=== PATIENT | female | born 1955 | race Hispanic/Latino ===

== ENCOUNTER → 2017-07-11 | Day surgery (SDC) | payer OTHER ==
[~2017-07-11] MED LIST: ATENOLOL50 MG PO; CALCIUM CARBON500 MG PO; CEFAZOLIN SOD 1 GM VIAL ONE; FENTANYL CITRATE/PF 100MCG/2 ML INJ ONE; FISH OIL 1,0001 EAC3 PO; FUROSEMIDE40 MG PO; LISINOPRIL-HCT1 EACH PO; MIDAZOLAM HCL 2 MG/2 ML VIAL ONE; PROPOFOL IV EMULSION 10 MG/ML 50 ML VIAL ONE; SPIRONOLACTONE25 MG PO; URSODIOL300 MG PO; VITAMIN D35000 UNIT PO
== END | disposition home or self-care (01) ==
LOC: OR 06:07
PROVIDERS: ATTEND Internal Medicine Gastroenterology
DX: K74.3 Primary biliary cirrhosis (principal); K29.50 Unspecified chronic gastritis without bleeding; I85.10 Secondary esophageal varices without bleeding; K25.9 Gastric ulcer, unspecified as acute or chronic, without hemorrhage or perforation; K76.6 Portal hypertension; K31.89 Other diseases of stomach and duodenum; I10 Essential (primary) hypertension; Z01.810 Encounter for preprocedural cardiovascular examination; Z68.35 Body mass index [BMI] 35.0-35.9, adult; Z87.01 Personal history of pneumonia (recurrent); Z87.891 Personal history of nicotine dependence
CPT/HCPCS: 43239; 43244; 93005; J0690; J2250

== ENCOUNTER → 2017-07-25 | Day surgery (SDC) | payer OTHER ==
[~2017-07-25] MED LIST changes: +LIDOCAINE HCL 2% LOCAL INJ 5 ML SDV VIAL INJ ONE
== END | disposition home or self-care (01) ==
LOC: OR 06:51
PROVIDERS: ATTEND Internal Medicine Gastroenterology
DX: K74.3 Primary biliary cirrhosis (principal); I85.10 Secondary esophageal varices without bleeding; K22.10 Ulcer of esophagus without bleeding; K76.6 Portal hypertension; K31.89 Other diseases of stomach and duodenum; I10 Essential (primary) hypertension; Z68.35 Body mass index [BMI] 35.0-35.9, adult; Z87.01 Personal history of pneumonia (recurrent)
CPT/HCPCS: 43239; 43244; J0690; J2001; J2250

== ENCOUNTER → 2018-07-17 | Day surgery (SDC) | payer OTHER ==
[2018-07-10 15:37] LABS: BASOPHILS % 0.5 % (0.0-1.0); EOSINOPHILS # (AUTO) 0.1 (0.0-0.4); EOSINOPHILS % 3.2 % (0.0-6.0); HEMATOCRIT 38.2 % (34.2-44.1); HEMOGLOBIN 13.1 g/dL (12.0-16.0); LYMPHOCYTES # (AUTO) 1.1 (1.0-3.2); LYMPHOCYTES % 29.6 % (18.0-39.1); MEAN CORPUSCULAR HEMOGLOBIN 33.5 pg (28-32); MEAN CORPUSCULAR HGB CONC 34.3 g/dL (31-35); MEAN CORPUSCULAR VOLUME 97.7 fL (81-99); MONOCYTES # (AUTO) 0.4 (0.2-0.8); MONOCYTES % 10.5 % (4.4-11.3); NEUTROPHILS # (AUTO) 2.1 (2.1-6.9); NEUTROPHILS % 55.9 % (38.7-80.0); RED BLOOD COUNT 3.91 x10e6/uL (3.6-5.1); RED CELL DISTRIBUTION WIDTH 13.3 % (11.7-14.4)
[2018-07-10 15:41] LABS: PLATELET COUNT 55 x10e3/uL (140-360)
[2018-07-10 15:45] LABS: INR 1.02; PROTHROMBIN TIME 14.3 seconds (11.9-14.5)
[2018-07-10 15:55] LABS: ALANINE AMINOTRANSFERASE 17 IU/L (0-55); ALBUMIN 3.2 g/dL (3.5-5.0); ALBUMIN/GLOBULIN RATIO 0.9 (0.8-2.0); ALKALINE PHOSPHATASE 148 IU/L (40-150); BLOOD UREA NITROGEN 12 mg/dL (7-26); BUN/CREATININE RATIO 17 (6-25); CALCIUM 8.7 mg/dL (8.4-10.2); CARBON DIOXIDE 27 mmol/L (22-29); CHLORIDE 102 mmol/L (98-107); CREATININE, SERUM 0.69 mg/dL (0.57-1.11); EST GLOMERULAR FILTRATION RATE > 60 ML/MIN (60-); GLUCOSE 107 mg/dL (74-118); SODIUM 141 mmol/L (136-145)
[~2018-07-17] MED LIST changes: -CEFAZOLIN SOD 1 GM VIAL ONE; +FAMOTIDINE20 MG PO; -FENTANYL CITRATE/PF 100MCG/2 ML INJ ONE; +PROPOFOL IV EMULSION 10 MG/ML 20 ML VIAL ONE; -PROPOFOL IV EMULSION 10 MG/ML 50 ML VIAL ONE
--- OUTSIDE RECORDS SUMMARY | 2018-07-17 06:27 | XMS REPORT | Clinical Summary ---
Author Author [facility] Address Unknown Phone Unavailable Care Team Providers Care Water Sponger Name Role Phone Maik Reyes PCP Unavailable Allergies No Known Allergies Medications End Date Status Medication Sig Dispensed Refills Start Date Active atenolol (TENORMIN) 50 MG Take 50 mg by 0 tablet mouth 2 (two) 6 times daily . Active cetirizine (ZYRTEC) 10 MG Take 10 mg by 0 tablet mouth. 5 Active omega-3 fatty Take 1,000 mg 0 acids-vitamin E (FISH by mouth. OIL) 1,000 mg Cap Active cholecalciferol, vitamin Take 5,000 0 D3, (VITAMIN D3) 5,000 Units by unit Tab mouth daily. Active pantoprazole (PROTONIX) Take 40 mg by 0 40 MG tablet mouth daily. Active calcium carbonate 1250 MG Take 2,400 mg 0 capsule by mouth daily. Active furosemide (LASIX) 20 MG Take 1 tablet 90 tablet 3 tabletIndications: Pedal (20 mg total) 8 edema by mouth daily. Active spironolactone Take 2 180 tablet 5 (ALDACTONE) 25 MG tablets (50 8 tabletIndications: Pedal mg total) by edema mouth daily. Active ursodiol (ACTIGALL) 300 TAKE 2 360 capsule 1 mg capsule CAPSULES 8 (=600MG) TWICE DAILY FOR PRIMARY BILIARY CHOLANGITIS. 01/23/2018 Discontinued lisinopril-hydrochlorothi 0 azide 6 (PRINZIDE,ZESTORETIC) 20-12.5 mg per tablet 01/23/2018 Discontinued calcium carbonate-vitamin Take by 0 D3 (CALCIUM 500 + D) 500 mouth. mg(1,250mg) -400 unit Tab 07/31/2017 Discontinued furosemide (LASIX) 20 MG Take 1 tablet 30 tablet 5 tabletIndications: Pedal (20 mg total) 7 edema by mouth daily. 07/31/2017 Discontinued spironolactone Take 1 tablet 30 tablet 5 (ALDACTONE) 25 MG (25 mg total) 7 tabletIndications: Pedal by mouth edema daily. 01/07/2018 Discontinued ursodiol (ACTIGALL) 300 Take 2 360 capsule 1 mg capsule capsules (600 7 mg total) by mouth 2 (two) times daily. 01/23/2018 Discontinued RABEprazole (ACIPHEX) 20 Take 20 mg by 0 mg EC tablet mouth daily. 01/22/2018 Discontinued furosemide (LASIX) 20 MG Take 1 tablet 30 tablet 5 tabletIndications: Pedal (20 mg total) 7 edema by mouth daily. 01/22/2018 Discontinued spironolactone Take 1 tablet 30 tablet 5 (ALDACTONE) 25 MG (25 mg total) 7 tabletIndications: Pedal by mouth edema daily. 05/08/2018 Discontinued ursodiol (ACTIGALL) 300 TAKE 2 360 capsule 1 mg capsule CAPSULES 8 (=600MG) TWICE DAILY FOR PRIMARY BILIARY CHOLANGITIS 01/23/2018 Discontinued spironolactone TAKE ONE 30 tablet 5 (ALDACTONE) 25 MG TABLET BY 8 tabletIndications: Pedal MOUTH ONCE edema DAILY 01/23/2018 Discontinued furosemide (LASIX) 20 MG TAKE ONE 30 tablet 5 tabletIndications: Pedal TABLET BY 8 edema MOUTH ONCE DAILY Active Problems Problem Noted Date Immunity status testing 08/09/2016 Last Assessment & Plan: CDC recommends that all patients with chronic liver disease, regardless of etiology, should be immunized to prevent hepatitis A and hepatitis B if they are not already immune. This should be done in addition to other age-appropriate vaccines. She is not immune to hepatitis B and needs vaccination series. We will check her Hepatitis A status next visit. Varices, esophageal 08/09/2016 Last Assessment & Plan: EGD 07/19/[address] Rosen showed grade I/II varices. Continue to follow-up with Dr. Rosen for variceal screening. Abnormal liver enzymes 06/20/2016 Last Assessment & Plan: The patient's liver test abnormalities are likely related to Primary biliary cirrhosis .Comprehensive testing for other causes of liver diseases was negative. Liver biopsy was considered to be diagnostic for Primary biliary cirrhosis. We will review the liver biopsy. Continue to take Ursodiol. 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 She is currently taking ursodiol 600mg BID. We will check labs to see her response to ursodiol. 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 She had a positive SARKIS with high titer, nuclear pattern, and high IgG. Her liver biopsy had rare clusters of plasma cells so overlap syndrome was ruled out. Synthetic function is somewhat preserved. Her cirrhosis is compensate with a MELD-NA 8 (06/20/16). Portal hypertension 06/20/2016 Last Assessment & Plan: Manifested by thrombocytopenia and varices. Secondary esophageal varices without bleeding 06/20/2016 Last Assessment & Plan: Patient with PBC , high rsik for development of portal hypertenion. We will recommend upper endoscopy for screening varices. Patient will contact Dr Lopez's office. Based on result, further recommendations will be made Screening for cancer 06/20/2016 Last Assessment & Plan: Cirrhosis, regardless of etiology, is a risk factor for hepatocellular carcinoma (HCC), with an annual incidence of 1.5-7%. We recommend surveillance for HCC with abdominal imaging and alphafetoprotein every 6 months. US 01/2016 was negative for any suspicious lesions. She is due for a repeat US now, order given. AFP 06/20/16 was 3.0. Screening for endocrine/metabolic/immunity disorders 06/20/2016 Last Assessment & Plan: Serological tests will be completed to determine the presence of immunity to hepatitis A and B. If found susceptible she will be referred to her primary care provider to consider the administration of the appropriate vaccines. Osteoporosis 06/20/2016 Last Assessment & Plan: Patient with PBC have high risk of osteoporosis. She had a Dexa Scan last week but does not have the results. Continue Calcium and Vitamin D and discuss the Dexa scan results with PCP. Encounters Care Team Description Date Type Specialty Harmeet Morales MD Cirrhosis, biliary (HCC) 07/06/2018 Hospital Radiology Encounter Harmeet Morales MD Cirrhosis, biliary (HCC) 07/06/2018 Orders Only Lab Harmeet Morales MD 07/03/2018 Outside Orders Radiology Tahmina Head RN 05/08/2018 Orders Only Hepatology Lavonne Quintana MA 05/07/2018 Abstract Transplant Tahmina Head RN 05/04/2018 Abstract Hepatology Tahmina Head RN 05/01/2018 Orders Only Hepatology Cecy Worthington 01/24/2018 Abstract Hepatology Harmeet Morales MD Cirrhosis, biliary (HCC) (Primary Dx); Primary biliary cholangitis (HCC); Pedal edema 01/23/2018 Office Visit Hepatology Sai Leach NP 01/23/2018 Documentation Hepatology Uche Jesus MD Pedal edema 01/22/2018 Refill Hepatology Harmeet Morales MD Cirrhosis, biliary (HCC) 01/12/2018 Hospital Radiology Encounter Harmeet Morales MD 01/12/2018 Outside Orders Harmeet Morales MD 01/07/2018 Refill Hepatology Tahmina Head RN Cirrhosis, biliary (HCC) (Primary Dx) 11/27/2017 Orders Only Hepatology Cecy Worthington 09/08/2017 Abstract Hepatology Eduarda Santana, GERIATRICS PHYSICIAN Primary biliary cholangitis (HCC) (Primary Dx); Cirrhosis, biliary (HCC) 09/05/2017 Documentation Hepatology Tahmina Head RN Pedal edema 08/02/2017 Orders Only Hepatology Mychart, Generic Provider Pedal edema 08/02/2017 Refill Tahmina Head RN 08/02/2017 Abstract Hepatology Gail Hernandes RN Mindikoglu, Ayse Leyla, MD [facility] Harmeet Morales MD Hollinger, F. Blaine, MD Primary biliary cholangitis (HCC) (Primary Dx); Pedal edema; Portal hypertension (HCC); Secondary esophageal varices without bleeding (HCC); Abnormal liver enzymes; Screening for cancer; Screening for endocrine/metabolic/immunity disorders 07/31/2017 Office Visit Hepatology Harmeet Morales MD Cirrhosis, biliary (HCC); Primary biliary cholangitis (HCC); Screening for cancer 07/24/2017 Hospital Radiology Encounter Harmeet Morales MD Cirrhosis, biliary (HCC); Primary biliary cholangitis (HCC); Screening for cancer 07/24/2017 Orders Only Lab Harmeet Morales MD 07/24/2017 Outside Orders after 07/16/2017 Family History Medical History Relation Name Comments Heart disease Father Unremarkable Mother Relation Name Status Comments Father Mother Alive Social History Date Tobacco Use Types Packs/Day Years Used Never Assessed Sex Assigned at Date Recorded Not on file Industry Job Start Date Occupation Not on file Not on file Not on file Travel End Travel History Travel Start No recent travel history available. Last Filed Vital Signs Time Taken Vital Sign Reading 01/23/2018 3:48 PM CDT Blood Pressure 121/78 01/23/2018 3:48 PM CDT Pulse 62 01/23/2018 3:48 PM CDT Temperature 36.9 C (98.4 F) 01/23/2018 3:48 PM CDT Respiratory Rate 21 01/23/2018 3:48 PM CDT Oxygen Saturation 99% - Inhaled Oxygen - Concentration 01/23/2018 3:48 PM CDT Weight 102.6 kg (226 lb 1.6 oz) 01/23/2018 3:48 PM CDT Height 157.5 cm (5' 2") 01/23/2018 3:48 PM CDT Body Mass Index 41.35 Plan of Treatment Care Team Description Date Type Specialty Harmeet Morales MD [address] [id number] 07/26/2018 Office Visit Hepatology Health Maintenance Due Date Last Done Comments INFLUENZA VACCINE 05/28/2018 Procedures Comments Procedure Name Priority Date/Time Associated Diagnosis US ABDOMEN COMPLETE Routine 07/06/2018 Cirrhosis, biliary (HCC) 8:37 AM SECRETARY TO THE VICE PRESIDENT CBC W/PLT COUNT & AUTO Routine 07/06/2018 Cirrhosis, biliary (HCC) DIFFERENTIAL 7:58 AM SECRETARY TO THE VICE PRESIDENT PROTHROMBIN TIME/INR Routine 07/06/2018 Cirrhosis, biliary (HCC) 7:58 AM SECRETARY TO THE VICE PRESIDENT ALPHA FETOPROTEIN (AFP), Routine 07/06/2018 Cirrhosis, biliary (HCC) TUMOR MARKER 7:58 AM SECRETARY TO THE VICE PRESIDENT CBC W/PLT COUNT & AUTO Routine 07/06/2018 Cirrhosis, biliary (HCC) DIFFERENTIAL 7:58 AM SECRETARY TO THE VICE PRESIDENT HEPATIC FUNCTION PANEL Routine 07/06/2018 Cirrhosis, biliary (HCC) 7:58 AM SECRETARY TO THE VICE PRESIDENT BASIC METABOLIC PANEL (7) Routine 07/06/2018 Cirrhosis, biliary (HCC) 7:58 AM SECRETARY TO THE VICE PRESIDENT CBC W/PLT COUNT & AUTO Routine 01/23/2018 Cirrhosis, biliary (HCC) DIFFERENTIAL 3:00 PM CDT Primary biliary cholangitis (HCC) GAMMA GLUTAMYL Routine 01/23/2018 Cirrhosis, biliary (HCC) TRANSFERASE (GGT) 3:00 PM CDT Primary biliary cholangitis (HCC) ALPHA FETOPROTEIN (AFP), Routine 01/23/2018 Cirrhosis, biliary (HCC) TUMOR MARKER 3:00 PM CDT Primary biliary cholangitis (HCC) PROTHROMBIN TIME/INR Routine 01/23/2018 Cirrhosis, biliary (HCC) 3:00 PM CDT Primary biliary cholangitis (HCC) CBC W/PLT COUNT & AUTO Routine 01/23/2018 Cirrhosis, biliary (HCC) DIFFERENTIAL 3:00 PM CDT Primary biliary cholangitis (HCC) HEPATIC FUNCTION PANEL Routine 01/23/2018 Cirrhosis, biliary (HCC) 3:00 PM CDT Primary biliary cholangitis (HCC) BASIC METABOLIC PANEL (7) Routine 01/23/2018 Cirrhosis, biliary (HCC) 3:00 PM CDT Primary biliary cholangitis (HCC) US ABDOMEN COMPLETE Routine 01/12/2018 Cirrhosis, biliary (HCC) 8:35 AM CDT PROTHROMBIN TIME/INR Routine 01/08/2018 Primary biliary 8:37 AM CDT cholangitis (HCC) Abnormal liver enzymes HEPATIC FUNCTION PANEL Routine 01/08/2018 Primary biliary 8:37 AM CDT cholangitis (HCC) Abnormal liver enzymes PROTHROMBIN TIME/INR Routine 09/04/2017 Primary biliary 7:57 AM SECRETARY TO THE VICE PRESIDENT cholangitis (HCC) Abnormal liver enzymes HEPATIC FUNCTION PANEL Routine 09/04/2017 Primary biliary 7:57 AM SECRETARY TO THE VICE PRESIDENT cholangitis (HCC) Abnormal liver enzymes US ABDOMEN COMPLETE Routine 07/24/2017 Cirrhosis, biliary (HCC) 10:44 AM SECRETARY TO THE VICE PRESIDENT Primary biliary cholangitis (HCC) Screening for cancer CBC W/PLT COUNT & AUTO Routine 07/24/2017 Cirrhosis, biliary (HCC) DIFFERENTIAL 8:53 AM SECRETARY TO THE VICE PRESIDENT Primary biliary cholangitis (HCC) Screening for cancer ALPHA FETOPROTEIN (AFP), Routine 07/24/2017 Cirrhosis, biliary (HCC) TUMOR MARKER 8:53 AM SECRETARY TO THE VICE PRESIDENT Primary biliary cholangitis (HCC) Screening for cancer CBC W/PLT COUNT & AUTO Routine 07/24/2017 Cirrhosis, biliary (HCC) DIFFERENTIAL 8:53 AM SECRETARY TO THE VICE PRESIDENT Primary biliary cholangitis (HCC) Screening for cancer HEPATIC FUNCTION PANEL Routine 07/24/2017 Cirrhosis, biliary (HCC) 8:53 AM SECRETARY TO THE VICE PRESIDENT Primary biliary cholangitis (HCC) Screening for cancer BASIC METABOLIC PANEL (7) Routine 07/24/2017 Cirrhosis, biliary (HCC) 8:53 AM SECRETARY TO THE VICE PRESIDENT Primary biliary cholangitis (HCC) Screening for cancer after 07/16/2017 Results * US abdomen complete (07/06/2018 8:37 AM SECRETARY TO THE VICE PRESIDENT) Only the most recent of 3 results within the time period is included. Narrative Performed At FINAL REPORT [facility] Ultrasound abdomen History: cirrhosis, screen for cancer Comparison: 01/12/2018 Technique: Real-time ultrasound of the abdomen was performed Findings: The liver demonstrates cirrhotic morphology. Hepatic length is 13.0 cm. No mass lesion is visualized. The gallbladder is absent. There is no biliary dilatation. The common bile duct is normal in caliber, measuring 3 mm. The main portal vein is normal in caliber, measuring 10 mm. The spleen is enlarged in size, measuring 13.8 cm in length. The pancreas is obscured by bowel gas. The visualized portion appears unremarkable.No ascites or pleural effusions. The right kidney measures 11.3 cm in length and the left kidney measures 11.3 cm in length.No hydronephrosis, mass lesion or stones are visualized. The abdominal aorta and IVC appear unremarkable in their visualized portions. Impression: 1. Cirrhosis without suspicious mass visualized by ultrasound. 2. Status post cholecystectomy without biliary dilatation. 3. Splenomegaly. Signed: Tariq Funez MD Report Verified Date/Time:07/06/2018 09:15:08 Reading Location: [address] Radiology Reading Room Procedure Note Interface, External Ris In - 07/06/2018 9:17 AM SECRETARY TO THE VICE PRESIDENT FINAL REPORT Ultrasound abdomen History: cirrhosis, screen for cancer Comparison: 01/12/2018 Technique: Real-time ultrasound of the abdomen was performed Findings: The liver demonstrates cirrhotic morphology. Hepatic length is 13.0 cm. No mass lesion is visualized. The gallbladder is absent. There is no biliary dilatation. The common bile duct is normal in caliber, measuring 3 mm. The main portal vein is normal in caliber, measuring 10 mm. The spleen is enlarged in size, measuring 13.8 cm in length. The pancreas is obscured by bowel gas. The visualized portion appears unremarkable. No ascites or pleural effusions. The right kidney measures 11.3 cm in length and the left kidney measures 11.3 cm in length. No hydronephrosis, mass lesion or stones are visualized. The abdominal aorta and IVC appear unremarkable in their visualized portions. Impression: 1. Cirrhosis without suspicious mass visualized by ultrasound. 2. Status post cholecystectomy without biliary dilatation. 3. Splenomegaly. Signed: Tariq Funez MD Report Verified Date/Time: 07/06/2018 09:15:08 Reading Location: [address] Radiology Reading Room Performing Organization Address City/State/Zipcode Phone Number RIS * CBC with platelet count + automated diff (07/06/2018 7:58 AM SECRETARY TO THE VICE PRESIDENT) Only the most recent of 3 results within the time period is included. WBC 3.3 (L) 3.5 - 10.5 K/L [facility] RBC 3.91 (L) 3.93 - 5.22 M/L [facility] Hemoglobin 13.2 11.2 - 15.7 GM/DL [facility] Hematocrit 37.8 34.1 - 44.9 % [facility] MCV 96.7 (H) 79.4 - 94.8 fL [facility] MCH 33.8 (H) 25.6 - 32.2 pg [facility] MCHC 34.9 32.2 - 35.5 GM/DL [facility] RDW 13.4 11.7 - 14.4 % [facility] Platelets 52 (L) 150 - 450 K/CU MM [facility] MPV 11.4 9.4 - 12.3 fL [facility] nRBC 0 0 - 0 /100 WBC [facility] % Neutros 63 % [facility] % Lymphs 23 % [facility] % Monos 11 % [facility] % Eos 2 % [facility] % Baso 0 % [facility] # Neutros 2.08 1.56 - 6.13 K/L [facility] # Lymphs 0.78 (L) 1.18 - 3.74 K/L [facility] # Monos 0.38 (H) 0.24 - 0.36 K/L [facility] # Eos 0.08 0.04 - 0.36 K/L [facility] # Baso 0.01 0.01 - 0.08 K/L [facility] Immature 0 0 - 1 % [facility] Granulocytes-[facility] Specimen Blood Performing Organization Address City/[facility] Phone Number [facility] [address] [place] [phone] [facility] * Alpha fetoprotein (AFP), tumor marker (07/06/2018 7:58 AM SECRETARY TO THE VICE PRESIDENT) Only the most recent of 3 results within the time period is included. Alpha-Fetoprotein 3.8 <10.0 ng/mL [facility] Specimen Blood Performing Organization Address City/[facility] Hospital[facility] Phone Number [facility] [address] [place] [phone] [facility] * Pro-time/INR (07/06/2018 7:58 AM SECRETARY TO THE VICE PRESIDENT) Only the most recent of 4 results within the time period is included. Protime 14.7 11.7 - 14.7 seconds [facility] INR 1.2 <=5.9 [facility] Specimen Blood Narrative Performed At RECOMMENDED COUMADIN/WARFARIN INR THERAPY RANGES [facility] STANDARD DOSE: 2.0 - 3.0 Includes: PROPHYLAXIS for venous thrombosis, [facility] systemic embolization; TREATMENT for venous thrombosis and/or pulmonary embolus. HIGH RISK: Target INR is 2.5-3.5 for patients with mechanical heart valves. Performing Organization Address City/[facility] Hospital[facility] Phone Number [address] [address] [facility] * Hepatic function panel (07/06/2018 7:58 AM SECRETARY TO THE VICE PRESIDENT) Only the most recent of 5 results within the time period is included. Protein, Total 6.8 6.0 - 8.3 gm/dL [facility] Albumin 3.2 (L) 3.5 - 5.0 g/dL [facility] Total Bilirubin 1.3 (H) 0.2 - 1.2 mg/dL [facility] Bilirubin, Direct 0.6 (H) 0.1 - 0.5 mg/dL [facility] Alkaline Phosphatase 123 40 - 150 U/L [facility] AST 30 5 - 34 U/L [facility] ALT 18 6 - 55 U/L [facility] Specimen Blood Performing Organization Address City/[facility]/Zipcode Phone Number [facility] [address] [place] [address] [facility] * Basic Metabolic Panel (07/06/2018 7:58 AM SECRETARY TO THE VICE PRESIDENT) Only the most recent of 3 results within the time period is included. Sodium 140 136 - 145 meq/L [facility] Potassium 4.2 3.5 - 5.1 meq/L [facility] Chloride 109 (H) 98 - 107 meq/L [facility] CO2 26 22 - 29 meq/L [facility] BUN 14 7 - 21 mg/dL [facility] Creatinine 0.64 0.57 - 1.25 mg/dL [facility] Glucose 119 (H) 70 - 105 mg/dL [facility] Calcium 8.7 8.4 - 10.2 mg/dL [facility] EGFR 93Comment: ESTIMATED GFR IS mL/min/1.73 sq m [facility] NOT ACCURATE CREATININE [facility] CLEARANCE IN PREDICTING GLOMERULAR FILTRATION RATE. ESTIMATED GFR IS NOT APPLICABLE FOR DIALYSIS PATIENTS. Specimen Blood Performing Organization Address City/[facility] Phone Number [facility] [address] [place] [address] [facility] * Gamma Glutamyl Transferase (GGT) (01/23/2018 3:00 PM CDT) GGT 20Comment: Specimen slightly 9 - 64 U/L [facility] hemolyzed [facility] Specimen Blood Performing Organization Address City/[facility]/Zipcode Phone Number [facility] [address] [place] [address] [facility] after 07/16/2017 Insurance Payer Benefit Subscriber ID Type Phone Address Plan / Group [facility] x[facility]x [employer] EXCHANGE
--- OUTSIDE RECORDS SUMMARY | 2018-07-17 06:27 | XMS REPORT ---
Author Author [facility] Address Unknown Phone Unavailable Care Team Providers Care Clinical Support Nurse Name Role Phone Bing SANDERSON Unavailable Unavailable Problems This patient has no known problems. Allergies, Adverse Reactions, Alerts This patient has no known allergies or adverse reactions. Medications This patient has no known medications. Results Test Description Test Time Test Comments Text Results Atomic Results Result Comments HEPATIC FUNCTION PANEL 2018-07-06 10:15:00 TOTAL PROTEIN (BEAKER) (test pmsg=205) 6.8 gm/dL 6.0-8.3 ALBUMIN (BEAKER) (test ypow=5234) 3.2 g/dL 3.5-5.0 BILIRUBIN TOTAL (BEAKER) (test ayce=091) 1.3 mg/dL 0.2-1.2 BILIRUBIN DIRECT (BEAKER) (test qtdh=815) 0.6 mg/dL 0.1-0.5 ALKALINE PHOSPHATASE (BEAKER) (test qqpr=890) 123 U/L 40-150 AST (SGOT) (BEAKER) (test zfta=999) 30 U/L 5-34 ALT (SGPT) (BEAKER) (test jcdc=221) 18 U/L 6-55 BASIC METABOLIC [id number] 10:15:00* Test Item Value Reference Range Comments SODIUM (BEAKER) (test vwzz=360) 140 meq/L 136-145 POTASSIUM (BEAKER) (test ewxh=481) 4.2 meq/L 3.5-5.1 CHLORIDE (BEAKER) (test uhur=821) 109 meq/L 98-107 CO2 (BEAKER) (test xsai=620) 26 meq/L 22-29 BLOOD UREA NITROGEN (BEAKER) (test kgrq=111) 14 mg/dL 7-21 CREATININE (BEAKER) (test qcqv=212) 0.64 mg/dL 0.57-1.25 GLUCOSE RANDOM (BEAKER) (test pdkq=351) 119 mg/dL 70-105 CALCIUM (BEAKER) (test aoud=428) 8.7 mg/dL 8.4-10.2 EGFR (BEAKER) (test efbs=9408) 93 mL/min/1.73 sq m ESTIMATED GFR IS NOT ACCURATE CREATININE CLEARANCE IN PREDICTING GLOMERULAR FILTRATION RATE. ESTIMATED GFR IS NOT APPLICABLE FOR DIALYSIS PATIENTS. ALPHA FETOPROTEIN (AFP), TUMOR [id number] 09:48:00* Test Item Value Reference Range Comments ALPHA-FETOPROTEIN (CHRISTIAN) (test grvt=8239) 3.8 ng/mL <10.0 U/S, ABDOMINAL, [id number] 09:15:00Referring: Ayala Dupont for Exam:->cirrhosis, screen for cancerFINAL REPORT Ultrasound abdomen History: cirrhosis, screen for [...] 1. Cirrhosis without suspicious mass visualized by ultrasound.2. Status post cholecystectomy without biliary dilatation.3. Splenomegaly. S[facility]: [facility] Verified Date/Time: 07/06/2018 09:15:08 Reading Location: [address] Radiology Reading Room HROMBIN TIME/[id number] 08:17:00* Test Item Value Reference Range Comments PROTIME (BEDELVIN) (test rbyp=614) 14.7 seconds 11.7-14.7 INR (BEAKER) (test zujd=496) 1.2 <=5.9 RECOMMENDED COUMADIN/WARFARIN INR THERAPY RANGESSTANDARD DOSE: 2.0 - 3.0 Inclu anthony: PROPHYLAXIS for venous thrombosis, systemic embolization; TREATMENT for diomedes ous thrombosis and/or pulmonary embolus.HIGH RISK: Target INR is 2.5-3.5 for pat ients with mechanical heart valves.CBC W/PLT COUNT & AUTO [id number] 08:09:00* Test Item Value Reference Range Comments WHITE BLOOD CELL COUNT (BEAKER) (test ulcr=279) 3.3 K/ L 3.5-10.5 RED BLOOD CELL COUNT (BEAKER) (test bdpg=743) 3.91 M/ L 3.93-5.22 HEMOGLOBIN (BEAKER) (test ejqr=631) 13.2 GM/DL 11.2-15.7 HEMATOCRIT (BEAKER) (test esha=448) 37.8 % 34.1-44.9 MEAN CORPUSCULAR VOLUME (BEAKER) (test oaor=301) 96.7 fL 79.4-94.8 MEAN CORPUSCULAR HEMOGLOBIN (BEAKER) (test tida=611) 33.8 pg 25.6-32.2 MEAN CORPUSCULAR HEMOGLOBIN CONC (BEAKER) (test kdjq=148) 34.9 GM/DL 32.2-35.5 RED CELL DISTRIBUTION WIDTH (BEAKER) (test zbqd=396) 13.4 % 11.7-14.4 PLATELET COUNT (BEAKER) (test ezqk=678) 52 K/CU MM 150-450 MEAN PLATELET VOLUME (BEAKER) (test xlxt=885) 11.4 fL 9.4-12.3 NUCLEATED RED BLOOD CELLS (BEAKER) (test xjxa=536) 0 /100 WBC 0-0 NEUTROPHILS RELATIVE PERCENT (BEAKER) (test izgf=913) 63 % LYMPHOCYTES RELATIVE PERCENT (BEAKER) (test matx=896) 23 % MONOCYTES RELATIVE PERCENT (BEAKER) (test atek=581) 11 % EOSINOPHILS RELATIVE PERCENT (BEAKER) (test kofc=362) 2 % BASOPHILS RELATIVE PERCENT (BEAKER) (test usmm=884) 0 % NEUTROPHILS ABSOLUTE COUNT (BEAKER) (test ngae=504) 2.08 K/ L 1.56-6.13 LYMPHOCYTES ABSOLUTE COUNT (BEAKER) (test msdd=205) 0.78 K/ L 1.18-3.74 MONOCYTES ABSOLUTE COUNT (BEAKER) (test zqed=584) 0.38 K/ L 0.24-0.36 EOSINOPHILS ABSOLUTE COUNT (BEAKER) (test qzpl=404) 0.08 K/ L 0.04-0.36 BASOPHILS ABSOLUTE COUNT (BEAKER) (test noic=780) 0.01 K/ L 0.01-0.08 IMMATURE GRANULOCYTES-RELATIVE PERCENT (BEAKER) (test rolh=1635) 0 % 0-1 ALPHA FETOPROTEIN (AFP), TUMOR [id number] 17:07:00* Test Item Value Reference Range Comments ALPHA-FETOPROTEIN (BEAKER) (test ojsu=6749) 4.2 ng/mL <10.0 BASIC METABOLIC [id number] 16:52:00* Test Item Value Reference Range Comments SODIUM (BEAKER) (test oehm=549) 141 meq/L 136-145 POTASSIUM (BEAKER) (test adtl=862) 4.9 meq/L 3.5-5.1 Specimen slightly hemolyzed CHLORIDE (BEAKER) (test ctlx=256) 108 meq/L 98-107 CO2 (BEAKER) (test smks=886) 26 meq/L 22-29 BLOOD UREA NITROGEN (BEAKER) (test rnow=740) 16 mg/dL 7-21 CREATININE (BEAKER) (test zcae=574) 0.65 mg/dL 0.57-1.25 Specimen slightly hemolyzed GLUCOSE RANDOM (BEAKER) (test yryv=729) 95 mg/dL 70-105 CALCIUM (BEAKER) (test dadp=349) 9.3 mg/dL 8.4-10.2 EGFR (BEAKER) (test czgd=4633) 92 mL/min/1.73 sq m ESTIMATED GFR IS NOT ACCURATE CREATININE CLEARANCE IN PREDICTING GLOMERULAR FILTRATION RATE. ESTIMATED GFR IS NOT APPLICABLE FOR DIALYSIS PATIENTS. HEPATIC FUNCTION [id number] 16:52:00* Test Item Value Reference Range Comments TOTAL PROTEIN (BEAKER) (test xvtc=486) 7.2 gm/dL 6.0-8.3 Specimen slightly hemolyzed ALBUMIN (BEAKER) (test bzmb=4843) 3.4 g/dL 3.5-5.0 Specimen slightly hemolyzed BILIRUBIN TOTAL (BEAKER) (test mtng=528) 1.3 mg/dL 0.2-1.2 Specimen slightly hemolyzed BILIRUBIN DIRECT (BEAKER) (test bwwo=857) 0.5 mg/dL 0.1-0.5 Specimen slightly hemolyzed ALKALINE PHOSPHATASE (BEAKER) (test plum=960) 122 U/L 40-150 AST (SGOT) (BEAKER) (test fbmb=063) 35 U/L 5-34 Specimen slightly hemolyzed ALT (SGPT) (BEAKER) (test lyrq=249) 24 U/L 6-55 Specimen slightly hemolyzed GAMMA GLUTAMYL TRANSFERASE (GGT)2018-01-23 16:52:00* Test Item Value Reference Range Comments GAMMA GLUTAMYL TRANSFERASE (BEAKER) (test wmrq=675) 20 U/L 9-64 Specimen slightly hemolyzed PROTHROMBIN TIME/[id number] 16:37:00* Test Item Value Reference Range Comments PROTIME (BEAKER) (test fidi=402) 14.9 seconds 11.7-14.7 INR (BEAKER) (test hglr=100) 1.2 <=5.9 RECOMMENDED COUMADIN/WARFARIN INR THERAPY RANGESSTANDARD DOSE: 2.0 - 3.0 Inclu anthony: PROPHYLAXIS for venous thrombosis, systemic embolization; TREATMENT for diomedes ous thrombosis and/or pulmonary embolus.HIGH RISK: Target INR is 2.5-3.5 for pat ients with mechanical heart valves.CBC W/PLT COUNT & AUTO [id number] 16:31:00* Test Item Value Reference Range Comments WHITE BLOOD CELL COUNT (BEAKER) (test pwdh=221) 3.8 K/ L 3.5-10.5 RED BLOOD CELL COUNT (BEAKER) (test sshi=782) 4.10 M/ L 3.93-5.22 HEMOGLOBIN (BEAKER) (test ejva=716) 13.2 GM/DL 11.2-15.7 HEMATOCRIT (BEAKER) (test foim=305) 39.5 % 34.1-44.9 MEAN CORPUSCULAR VOLUME (BEAKER) (test jncw=551) 96.3 fL 79.4-94.8 MEAN CORPUSCULAR HEMOGLOBIN (BEAKER) (test ugmp=113) 32.2 pg 25.6-32.2 MEAN CORPUSCULAR HEMOGLOBIN CONC (BEAKER) (test bznc=031) 33.4 GM/DL 32.2-35.5 RED CELL DISTRIBUTION WIDTH (BEAKER) (test pcvb=664) 13.8 % 11.7-14.4 PLATELET COUNT (BEAKER) (test tnzz=255) 54 K/CU MM 150-450 MEAN PLATELET VOLUME (BEAKER) (test szfz=948) 11.7 fL 9.4-12.3 NUCLEATED RED BLOOD CELLS (BEAKER) (test mkpq=938) 0 /100 WBC 0-0 NEUTROPHILS RELATIVE PERCENT (BEAKER) (test sgev=909) 60 % LYMPHOCYTES RELATIVE PERCENT (BEAKER) (test xdff=897) 25 % MONOCYTES RELATIVE PERCENT (BEAKER) (test trnx=270) 12 % EOSINOPHILS RELATIVE PERCENT (BEAKER) (test knxo=274) 3 % BASOPHILS RELATIVE PERCENT (BEAKER) (test hbkz=373) 0 % NEUTROPHILS ABSOLUTE COUNT (BEAKER) (test yogc=730) 2.30 K/ L 1.56-6.13 LYMPHOCYTES ABSOLUTE COUNT (BEAKER) (test hdjz=197) 0.96 K/ L 1.18-3.74 MONOCYTES ABSOLUTE COUNT (BEAKER) (test giwn=555) 0.45 K/ L 0.24-0.36 EOSINOPHILS ABSOLUTE COUNT (BEAKER) (test hvbv=209) 0.12 K/ L 0.04-0.36 BASOPHILS ABSOLUTE COUNT (BEAKER) (test zvmd=071) 0.01 K/ L 0.01-0.08 IMMATURE GRANULOCYTES-RELATIVE PERCENT (BEAKER) (test xkos=6000) 0 % 0-1 U/S, ABDOMINAL, [id number] 12:55:00Referring: Ayala Dupont for Exam:->cirrhosis, screen for HCCFINAL REPORT Ultrasound of the abdomen. Clinical History: cirrhosis, screen for HCC. Comparison study: July 24, 2017. Findings: The liver is coarse and nodular in echotexture with no focal masses. It measures 13.9 cm in length. There is no evidence of intra or extrahepatic biliary dilatation with the common bile duct measuring four mm. The main portal vein diameter is 1.1 cm. The gallbladder has been resected. The spleen measures 16.7 cm, enlarged. The pancreas is poorly seen. No ascites is present. The right kidney measures 10.7 cm and left kidney measures 11.8 cm, both within normal limits. No pleural effusions are seen. The proximal aorta and IVC are unremarkable. IMPRESSION:1. Nodular, coarsened liver with no focal masses.2. Status post cholecystectomy.3. Pancreas poorly seen.4. Splenomegaly. Signed: Kavon Dallas Verified Date/Time: 01/12/2018 12:55:20 Reading Location: [address] Radiology Reading Room U/S, ABDOMINAL, COMPLETE 2017-07-24 11:56:00Referring: Ayala Dupont for Exam:->cirrhosis, screen for HCCFINAL REPORT Abdominal ultrasound dated 07/24/2017 Clinical information:cirrhosis, screen for HCC Comment: Real-time transabdominal ultrasound was performed. Liver is normal in size and measures 14.1 cm in length. The echogenicity of the liver is heterogeneous.. No focal lesion is noted in the liver. Spleen is enlarged measuring 15.5 cm. Gallbladder is surgically absent. No biliary dilatation is seen. Common bile duct measures 6 mm in diameter. Main portal vein measures 11 mm in diameter. Pancreas is incompletely visualized. Right kidney measures 10.4 x 6.1 x 5.6 cm. Left kidney measures 11.3 x 5.5 x 5.9 cm. Echogenicity of both kidney is normal. No hydronephrosis or solid mass seen in either kidney. No cyst is seen in the either kidney. No ascites is present in the abdomen. Abdominal aorta is normal in caliber. IVC and Hepatic veins are patent. Impression:1. Coarse liver without focal hepatic mass.2. Splenomegaly.3. Incomplete visualization of the pancreas. Signed: Hanna Rosen Verified Date/Time: 07/24/2017 11:56:02 Reading Location: [address] Radiology Reading Room A FETOPROTEIN (AFP), TUMOR [id number] 11:09:00* Test Item Value Reference Range Comments ALPHA-FETOPROTEIN (BEAKER) (test oevd=5656) 4.2 ng/mL <10.0 BASIC METABOLIC [id number] 09:32:00* Test Item Value Reference Range Comments SODIUM (BEAKER) (test pdqk=700) 142 meq/L 136-145 POTASSIUM (BEAKER) (test qqfu=296) 4.9 meq/L 3.5-5.1 CHLORIDE (BEAKER) (test nmlx=052) 107 meq/L 98-107 CO2 (BEAKER) (test uszx=268) 30 meq/L 22-29 BLOOD UREA NITROGEN (BEAKER) (test ubpj=742) 12 mg/dL 7-21 CREATININE (BEAKER) (test nbes=705) 0.71 mg/dL 0.57-1.25 GLUCOSE RANDOM (BEAKER) (test dkxd=879) 124 mg/dL 70-105 CALCIUM (BEAKER) (test mmrj=752) 9.6 mg/dL 8.4-10.2 EGFR (BEAKER) (test vcsq=2611) 83 mL/min/1.73 sq m ESTIMATED GFR IS NOT ACCURATE CREATININE CLEARANCE IN PREDICTING GLOMERULAR FILTRATION RATE. ESTIMATED GFR IS NOT APPLICABLE FOR DIALYSIS PATIENTS. Specimen slightly ictericHEPATIC FUNCTION [id number] 09:32:00* Test Item Value Reference Range Comments TOTAL PROTEIN (BEAKER) (test uhhg=877) 7.6 gm/dL 6.0-8.3 ALBUMIN (BEAKER) (test pdkf=4102) 3.4 g/dL 3.5-5.0 BILIRUBIN TOTAL (BEAKER) (test zodu=372) 2.1 mg/dL 0.2-1.2 BILIRUBIN DIRECT (BEAKER) (test mxvq=490) 0.8 mg/dL 0.1-0.5 ALKALINE PHOSPHATASE (BEAKER) (test ucle=769) 128 U/L 40-150 AST (SGOT) (BEAKER) (test bjru=163) 32 U/L 5-34 ALT (SGPT) (BEAKER) (test oitp=090) 25 U/L 6-55 Specimen slightly ictericCBC W/PLT COUNT & AUTO [id number] 09:09:00 * Test Item Value Reference Range Comments WHITE BLOOD CELL COUNT (BEAKER) (test mldg=487) 4.4 K/ L 3.5-10.5 RED BLOOD CELL COUNT (BEAKER) (test ctww=686) 4.30 M/ L 3.93-5.22 HEMOGLOBIN (BEAKER) (test taht=902) 14.1 GM/DL 11.2-15.7 HEMATOCRIT (BEAKER) (test oirg=090) 42.2 % 34.1-44.9 MEAN CORPUSCULAR VOLUME (BEAKER) (test ezvn=936) 98.1 fL 79.4-94.8 MEAN CORPUSCULAR HEMOGLOBIN (BEAKER) (test fwvk=409) 32.8 pg 25.6-32.2 MEAN CORPUSCULAR HEMOGLOBIN CONC (BEAKER) (test wpne=206) 33.4 GM/DL 32.2-35.5 RED CELL DISTRIBUTION WIDTH (BEAKER) (test rujc=238) 14.3 % 11.7-14.4 PLATELET COUNT (BEAKER) (test kdbm=579) 63 K/CU MM 150-450 MEAN PLATELET VOLUME (BEAKER) (test yfmi=085) 10.9 fL 9.4-12.3 NUCLEATED RED BLOOD CELLS (BEAKER) (test zdxg=935) 0 /100 WBC 0-0 NEUTROPHILS RELATIVE PERCENT (BEAKER) (test pawy=625) 66 % LYMPHOCYTES RELATIVE PERCENT (BEAKER) (test vnqv=976) 22 % MONOCYTES RELATIVE PERCENT (BEAKER) (test hgjr=490) 10 % EOSINOPHILS RELATIVE PERCENT (BEAKER) (test iopc=670) 2 % BASOPHILS RELATIVE PERCENT (BEAKER) (test ddsf=873) 1 % NEUTROPHILS ABSOLUTE COUNT (BEAKER) (test opeg=653) 2.87 K/ L 1.56-6.13 LYMPHOCYTES ABSOLUTE COUNT (BEAKER) (test pfni=786) 0.94 K/ L 1.18-3.74 MONOCYTES ABSOLUTE COUNT (BEAKER) (test xmqc=918) 0.43 K/ L 0.24-0.36 EOSINOPHILS ABSOLUTE COUNT (BEAKER) (test mnxt=433) 0.10 K/ L 0.04-0.36 BASOPHILS ABSOLUTE COUNT (BEAKER) (test ovjp=981) 0.02 K/ L 0.01-0.08 IMMATURE GRANULOCYTES-RELATIVE PERCENT (BEAKER) (test yxgu=0519) 0 % 0-1 HEPATITIS B SURFACE [id number] 18:10:00* Test Item Value Reference Range Comments HEPATITIS B SURFACE ANTIBODY (BEAKER) (test xwoq=458) < mIU/mL <8.0 HEPATITIS B SURFACE [id number] 18:09:00* Test Item Value Reference Range Comments HEPATITIS B SURFACE ANTIGEN (2) (BEAKER) (test dpkj=3257) Nonreactive Nonreactive ALPHA FETOPROTEIN (AFP), TUMOR [id number] 18:09:00* Test Item Value Reference Range Comments ALPHA-FETOPROTEIN (BEAKER) (test yxlv=3496) 6.0 ng/mL <10.0 Effective 07/15/2014: Reference Range ChangeNew: <10.0 Previous: 0.0-8.0 HEPATITIS B CORE ANTIBODY, [id number] 18:09:00* Test Item Value Reference Range Comments HEPATITIS B CORE TOTAL ANTIBODY (BEAKER) (test kyjj=462) Nonreactive Nonreactive LIPID [id number] 17:51:00* Test Item Value Reference Range Comments TRIGLYCERIDES (BEAKER) (test gipy=789) 97 mg/dL CHOLESTEROL (BEAKER) (test uhej=784) 144 mg/dL HDL CHOLESTEROL (BEAKER) (test quhu=840) 54 mg/dL LDL CHOLESTEROL CALCULATED (BEAKER) (test ahtd=960) 71 mg/dL Triglyceride Reference Range: Low Risk <150 Borderline 150-199 High Risk 200-499 Very High Risk >=500Cholesterol Reference Range: Low Risk <200 Borderline 200-239 High Risk >240HDL Cholesterol Reference Range: Low Risk >=60 High Risk <40LDL Cholesterol Reference Range: Optimal <100 Near Optimal 100-129 Borderline 130-159 High 160-189 Very High >=190 BASIC METABOLIC [id number] 17:51:00* Test Item Value Reference Range Comments SODIUM (BEAKER) (test engl=796) 140 meq/L 136-145 POTASSIUM (BEAKER) (test gkip=520) 4.6 meq/L 3.5-5.1 CHLORIDE (BEAKER) (test fkux=122) 106 meq/L 98-107 CO2 (BEAKER) (test thym=016) 26 meq/L 22-29 BLOOD UREA NITROGEN (BEAKER) (test gdwz=968) 11 mg/dL 7-21 CREATININE (BEAKER) (test gwjm=053) 0.61 mg/dL 0.57-1.25 GLUCOSE RANDOM (BEAKER) (test pwpj=977) 82 mg/dL 70-105 CALCIUM (BEAKER) (test fhsw=194) 9.3 mg/dL 8.4-10.2 EGFR (BEAKER) (test rnbg=7836) 99 mL/min/1.73 sq m ESTIMATED GFR IS NOT ACCURATE CREATININE CLEARANCE IN PREDICTING GLOMERULAR FILTRATION RATE. ESTIMATED GFR IS NOT APPLICABLE FOR DIALYSIS PATIENTS. HEPATIC FUNCTION [id number] 17:51:00* Test Item Value Reference Range Comments TOTAL PROTEIN (BEAKER) (test cxpx=858) 7.1 gm/dL 6.0-8.3 ALBUMIN (BEAKER) (test dxgk=6433) 3.0 g/dL 3.5-5.0 BILIRUBIN TOTAL (BEAKER) (test dnhw=794) 1.5 mg/dL 0.2-1.2 BILIRUBIN DIRECT (BEAKER) (test mcll=510) 0.6 mg/dL 0.1-0.5 ALKALINE PHOSPHATASE (BEAKER) (test dmkz=103) 119 U/L 40-150 AST (SGOT) (BEAKER) (test ckyq=218) 39 U/L 5-34 ALT (SGPT) (BEAKER) (test jrsv=925) 24 U/L 6-55 GAMMA GLUTAMYL TRANSFERASE (GGT)2017-02-06 17:51:00* Test Item Value Reference Range Comments GAMMA GLUTAMYL TRANSFERASE (BEAKER) (test umpx=069) 21 U/L 9-64 CBC W/PLT COUNT & AUTO [id number] 17:51:00* Test Item Value Reference Range Comments WHITE BLOOD CELL COUNT (BEAKER) (test jlwq=774) 4.1 K/ L 4.0-10.0 RED BLOOD CELL COUNT (BEAKER) (test rukd=995) 3.82 M/ L 4.00-5.00 HEMOGLOBIN (BEAKER) (test nein=923) 13.3 GM/DL 12.0-15.0 HEMATOCRIT (BEAKER) (test vryq=652) 39.2 % 36.0-45.0 MEAN CORPUSCULAR VOLUME (BEAKER) (test dkmd=107) 102.0 fL 82.0-99.0 MEAN CORPUSCULAR HEMOGLOBIN (BEAKER) (test ptgl=073) 34.9 pg 27.0-33.0 MEAN CORPUSCULAR HEMOGLOBIN CONC (BEAKER) (test swft=883) 34.0 GM/DL 32.0-36.0 RED CELL DISTRIBUTION WIDTH (BEAKER) (test ouwq=267) 12.8 % 10.3-14.2 PLATELET COUNT (BEAKER) (test xrlt=294) 53 K/CU MM 150-430 MEAN PLATELET VOLUME (BEAKER) (test zxxr=923) 8.7 fL 6.5-10.5 NUCLEATED RED BLOOD CELLS (BEAKER) (test lvbt=522) 0 /100 WBC 0-0 NEUTROPHILS RELATIVE PERCENT (BEAKER) (test udug=671) 49 % LYMPHOCYTES RELATIVE PERCENT (BEAKER) (test sijo=987) 38 % MONOCYTES RELATIVE PERCENT (BEAKER) (test snso=244) 8 % EOSINOPHILS RELATIVE PERCENT (BEAKER) (test arrd=099) 4 % BASOPHILS RELATIVE PERCENT (BEAKER) (test ahuc=444) 1 % NEUTROPHILS ABSOLUTE COUNT (BEAKER) (test tizn=951) 2.03 K/ L 1.80-8.00 LYMPHOCYTES ABSOLUTE COUNT (BEAKER) (test vgzz=344) 1.57 K/ L 1.48-4.50 MONOCYTES ABSOLUTE COUNT (BEAKER) (test ipxb=979) 0.34 K/ L 0.00-1.30 EOSINOPHILS ABSOLUTE COUNT (BEAKER) (test tvim=950) 0.15 K/ L 0.00-0.50 BASOPHILS ABSOLUTE COUNT (BEAKER) (test zcjf=682) 0.04 K/ L 0.00-0.20 0.00PROTHROMBIN [id number] 17:41:00* Test Item Value Reference Range Comments PROTIME (BEAKER) (test qeoy=869) 15.2 seconds 11.7-14.7 INR (BEAKER) (test rnjm=953) 1.2 <=5.9 RECOMMENDED COUMADIN/WARFARIN INR THERAPY RANGESSTANDARD DOSE: 2.0 - 3.0 Inclu anthony: PROPHYLAXIS for venous thrombosis, systemic embolization; TREATMENT for diomedes ous thrombosis and/or pulmonary embolus.HIGH RISK: Target INR is 2.5-3.5 for pat ients with mechanical heart valves.
[2018-07-17 09:00] VITALS: BP 127/84
== END | disposition home or self-care (01) ==
LOC: OR 06:24
PROVIDERS: ATTEND Internal Medicine Gastroenterology
DX: K74.3 Primary biliary cirrhosis (principal); I85.10 Secondary esophageal varices without bleeding; K22.10 Ulcer of esophagus without bleeding; K76.6 Portal hypertension; K31.89 Other diseases of stomach and duodenum; I10 Essential (primary) hypertension; Z87.891 Personal history of nicotine dependence; Z01.810 Encounter for preprocedural cardiovascular examination; Z01.812 Encounter for preprocedural laboratory examination
CPT/HCPCS: 36415; 43239; 43244; 80053; 85025; 85610; 85730; 93005; J2001; J2250; J2704

== ENCOUNTER → 2018-08-14 | Day surgery (SDC) | payer OTHER ==
[2018-08-13 17:44] LABS: BASOPHILS % 0.6 % (0.0-1.0); EOSINOPHILS # (AUTO) 0.1 (0.0-0.4); EOSINOPHILS % 2.8 % (0.0-6.0); HEMATOCRIT 38.4 % (34.2-44.1); HEMOGLOBIN 13.2 g/dL (12.0-16.0); LYMPHOCYTES % 27.7 % (18.0-39.1); MEAN CORPUSCULAR HEMOGLOBIN 32.8 pg (28-32); MEAN CORPUSCULAR HGB CONC 34.4 g/dL (31-35); MEAN CORPUSCULAR VOLUME 95.3 fL (81-99); MONOCYTES # (AUTO) 0.5 (0.2-0.8); MONOCYTES % 12.6 % (4.4-11.3); NEUTROPHILS % 55.7 % (38.7-80.0); RED BLOOD COUNT 4.03 x10e6/uL (3.6-5.1); RED CELL DISTRIBUTION WIDTH 13.3 % (11.7-14.4)
[2018-08-13 17:47] LABS: PLATELET COUNT 54 x10e3/uL (140-360)
[2018-08-13 17:55] LABS: INR 0.99
[2018-08-13 17:59] LABS: ALANINE AMINOTRANSFERASE 21 IU/L (0-55); ALBUMIN 3.1 g/dL (3.5-5.0); ALBUMIN/GLOBULIN RATIO 0.8 (0.8-2.0); ALKALINE PHOSPHATASE 116 IU/L (40-150); ANION GAP 13.6 mmol/L (8-16); BLOOD UREA NITROGEN 12 mg/dL (7-26); BUN/CREATININE RATIO 17 (6-25); CALCIUM 9.4 mg/dL (8.4-10.2); CARBON DIOXIDE 28 mmol/L (22-29); CHLORIDE 104 mmol/L (98-107); CREATININE, SERUM 0.69 mg/dL (0.57-1.11); EST GLOMERULAR FILTRATION RATE > 60 ML/MIN (60-); GLUCOSE 102 mg/dL (74-118); POTASSIUM 4.6 mmol/L (3.5-5.1); SODIUM 141 mmol/L (136-145)
[~2018-08-14] MED LIST changes: +FENTANYL CITRATE/PF 100MCG/2 ML INJ ONE; -LIDOCAINE HCL 2% LOCAL INJ 5 ML SDV VIAL INJ ONE; -MIDAZOLAM HCL 2 MG/2 ML VIAL ONE; -PROPOFOL IV EMULSION 10 MG/ML 20 ML VIAL ONE; +PROPOFOL IV EMULSION 10 MG/ML 50 ML VIAL ONE
--- OUTSIDE RECORDS SUMMARY | 2018-08-14 10:20 | XMS REPORT | Clinical Summary ---
Author Author [facility]OMEKA [facility] Address Unknown Phone Unavailable Care Team Providers Care Shingler Name Role Phone Maik Reyes PCP Unavailable [...] Units by unit Tab mouth daily. Active calcium carbonate 1250 MG Take 2,400 mg 0 capsule by mouth daily. Active furosemide (LASIX) 20 MG Take 1 tablet 90 tablet 3 tabletIndications: Pedal (20 mg total) 8 edema by mouth daily. Active spironolactone Take 2 180 tablet 5 (ALDACTONE) 25 MG tablets (50 8 tabletIndications: Pedal mg total) by edema mouth daily. Active famotidine (PEPCID) 20 MG 0 tablet 8 Active ursodiol (ACTIGALL) 300 TAKE 2 360 capsule 1 mg capsuleIndications: CAPSULES 8 Cirrhosis of liver with (=600MG) ascites, unspecified TWICE DAILY hepatic cirrhosis type FOR PRIMARY (HCC) BILIARY CHOLANGITIS. 01/23/2018 Discontinued lisinopril-hydrochlorothi 0 azide 6 (PRINZIDE,ZESTORETIC) 20-12.5 mg per tablet 01/23/2018 Discontinued calcium carbonate-vitamin Take by 0 D3 (CALCIUM 500 + D) 500 mouth. mg(1,250mg) -400 unit Tab 01/07/2018 Discontinued ursodiol (ACTIGALL) 300 Take 2 [...] TABLET BY 8 edema MOUTH ONCE DAILY 07/26/2018 Discontinued pantoprazole (PROTONIX) Take 40 mg by 0 40 MG tablet mouth daily. 07/26/2018 Discontinued ursodiol (ACTIGALL) 300 TAKE 2 360 capsule 1 mg capsule CAPSULES 8 (=600MG) TWICE DAILY FOR PRIMARY BILIARY CHOLANGITIS. Active Problems Problem Noted Date Class 3 severe obesity in adult 07/26/2018 Immunity status testing 08/09/2016 Last Assessment & [...] Encounters Care Team Description Date Type Specialty Yakelin Martínez MA 07/27/2018 Abstract Hepatology Harmeet Morales MD Counts, Parxann Marie, PA Cirrhosis of liver with ascites, unspecified hepatic cirrhosis type (HCC) (Primary Dx); Immunity status testing; Screening for endocrine/metabolic/immunity disorders; Screening for cancer; Osteoporosis, unspecified osteoporosis type, unspecified pathological fracture presence; Cirrhosis, biliary (HCC); Primary biliary cholangitis (HCC); Secondary esophageal varices without bleeding (HCC); Portal hypertension (HCC); Class 3 severe obesity due to excess calories with serious comorbidity and body mass index (BMI) of 40.0 to 44.9 in adult (HCC) 07/26/2018 Office Visit Hepatology Harmeet Morales MD Cirrhosis, biliary (HCC) 07/06/2018 Hospital Radiology Encounter Harmeet Morales MD Cirrhosis, biliary (HCC) 07/06/2018 Orders Only Lab Harmeet Morales MD 07/03/2018 Outside Orders Radiology Tahmina Head RN 05/08/2018 Orders Only Hepatology Lavonne Quintana MA 05/07/2018 Abstract Transplant Tahmina Head RN 05/04/2018 Abstract Hepatology Tahmina Head RN 05/01/2018 Orders Only Hepatology Cecy Worthington E 01/24/2018 Abstract Hepatology Harmeet Morales MD Cirrhosis, [...] (HCC) (Primary Dx) 11/27/2017 Orders Only Hepatology Albaro Worthingtonksrossy E 09/08/2017 Abstract Hepatology Eduarda Santana FNP Primary biliary cholangitis (HCC) (Primary Dx); Cirrhosis, biliary (HCC) 09/05/2017 Documentation Hepatology after 08/13/2017 Family History Medical History Relation Name Comments Heart disease Father Unremarkable Mother Relation Name Status Comments Father Mother Alive Social History Date Tobacco Use Types Packs/Day Years Used Unknown If Ever Smoked Smokeless Tobacco: Never Used Sex Assigned at Date Recorded Not on file Industry Job Start Date Occupation Not on file Not on file Not on file Travel End Travel History Travel Start No recent travel history available. Last Filed Vital Signs Time Taken Vital Sign Reading 07/26/2018 2:57 PM [employer]Y SERVICE TECHNICIAN Blood Pressure 107/54 07/26/2018 2:57 PM BATTERY SERVICE TECHNICIAN Pulse 66 07/26/2018 2:57 PM BATTERY SERVICE TECHNICIAN Temperature 36.6 C (97.8 F) 07/26/2018 2:57 PM BATTERY SERVICE TECHNICIAN Respiratory Rate 18 07/26/2018 2:57 PM BATTERY SERVICE TECHNICIAN Oxygen Saturation 99% - Inhaled Oxygen - Concentration 07/26/2018 2:57 PM BATTERY SERVICE TECHNICIAN Weight 103.9 kg (229 lb) 07/26/2018 2:57 PM BATTERY SERVICE TECHNICIAN Height 157.5 cm (5' 2") 07/26/2018 2:57 PM BATTERY SERVICE TECHNICIAN Body Mass Index 41.88 Plan of Treatment Care Team Description Date Type Specialty Harmeet Morales MD [address] [address] [phone] 12/28/2018 Appointment Radiology 12/28/2018 Orders Only Transplant Hepatology Resource, [facility] F 01/03/2019 Office Visit Hepatology Health Maintenance Due Date Last Done Comments INFLUENZA VACCINE 05/28/2018 Procedures Comments Procedure Name Priority Date/Time Associated Diagnosis US ABDOMEN COMPLETE Routine 07/06/2018 Cirrhosis, biliary (HCC) 8:37 AM BATTERY SERVICE TECHNICIAN CBC W/PLT COUNT & AUTO Routine 07/06/2018 Cirrhosis, biliary (HCC) DIFFERENTIAL 7:58 AM BATTERY SERVICE TECHNICIAN PROTHROMBIN TIME/INR Routine 07/06/2018 Cirrhosis, biliary (HCC) 7:58 AM BATTERY SERVICE TECHNICIAN ALPHA FETOPROTEIN (AFP), Routine 07/06/2018 Cirrhosis, biliary (HCC) TUMOR MARKER 7:58 AM BATTERY SERVICE TECHNICIAN CBC W/PLT COUNT & AUTO Routine 07/06/2018 Cirrhosis, biliary (HCC) DIFFERENTIAL 7:58 AM BATTERY SERVICE TECHNICIAN HEPATIC FUNCTION PANEL Routine 07/06/2018 Cirrhosis, biliary (HCC) 7:58 AM BATTERY SERVICE TECHNICIAN BASIC METABOLIC PANEL (7) Routine 07/06/2018 Cirrhosis, biliary (HCC) 7:58 AM BATTERY SERVICE TECHNICIAN CBC W/PLT COUNT & AUTO Routine 01/23/2018 [...] TIME/INR Routine 09/04/2017 Primary biliary 7:57 AM BATTERY SERVICE TECHNICIAN cholangitis (HCC) Abnormal liver enzymes HEPATIC FUNCTION PANEL Routine 09/04/2017 Primary biliary 7:57 AM BATTERY SERVICE TECHNICIAN cholangitis (HCC) Abnormal liver enzymes after 08/13/2017 Results * US abdomen complete (07/06/2018 8:37 AM BATTERY SERVICE TECHNICIAN) Only the most recent of 2 results within the time period is included. Narrative Performed At FINAL REPORT [facility] Ultrasound abdomen History: cirrhosis, screen for cancer [...] MD Report Verified Date/Time:07/06/2018 09:15:08 Reading Location: [address] Radiology Reading Room Procedure Note Interface, External Ris In - 07/06/2018 9:17 AM BATTERY SERVICE TECHNICIAN FINAL REPORT Ultrasound abdomen History: cirrhosis, screen [...] Report Verified Date/Time: 07/06/2018 09:15:08 Reading Location: [address] Radiology Reading Room Performing Organization Address City/State/Zipcode Phone Number GE RIS * CBC with platelet count + automated diff (07/06/2018 7:58 AM BATTERY SERVICE TECHNICIAN) Only the most recent of 2 results within the time period is included. WBC 3.3 (L) 3.5 - 10.5 K/L [facility] RBC 3.91 (L) 3.93 - 5.22 M/L [facility] Hemoglobin 13.2 11.2 - 15.7 GM/DL [facility] Hematocrit 37.8 34.1 - 44.9 % [facility] MCV 96.7 (H) 79.4 - 94.8 fL [facility] MCH 33.8 (H) 25.6 - 32.2 pg [facility] MCHC 34.9 32.2 - 35.5 GM/DL [facility] RDW 13.4 11.7 - 14.4 % [facility] Platelets 52 (L) 150 - 450 K/CU MM [facility] MPV 11.4 9.4 - 12.3 fL [facility] nRBC 0 0 - 0 /100 WBC [facility] % Neutros 63 % [facility] % Lymphs 23 % [facility] % Monos 11 % [facility] % Eos 2 % [facility] % Baso 0 % [facility] # Neutros 2.08 1.56 - 6.13 K/L [facility] # Lymphs 0.78 (L) 1.18 - 3.74 K/L [facility] # Monos 0.38 (H) 0.24 - 0.36 K/L [facility] # Eos 0.08 0.04 - 0.36 K/L [facility] # Baso 0.01 0.01 - 0.08 K/L [facility] Immature 0 0 - 1 % Granulocytes-Relative [facility] Specimen Blood Performing Organization Address City/[facility]/[place] [address] [facility] * Alpha fetoprotein (AFP), tumor marker (07/06/2018 7:58 AM BATTERY SERVICE TECHNICIAN) Only the most recent of 2 results within the time period is included. Alpha-Fetoprotein 3.8 <10.0 ng/mL [facility] Specimen Blood Performing Organization Address City/[facility] [place] [address] [facility] * Pro-time/INR (07/06/2018 7:58 AM BATTERY SERVICE TECHNICIAN) Only the most recent of 4 results within the time period is included. Protime 14.7 11.7 - 14.7 seconds [facility] INR 1.2 <=5.9 [facility] Specimen Blood Narrative Performed At RECOMMENDED COUMADIN/WARFARIN INR THERAPY RANGES STANDARD DOSE: 2.0 - 3.0 Includes: PROPHYLAXIS for venous thrombosis, [facility] systemic embolization; TREATMENT for venous thrombosis and/or pulmonary embolus. HIGH RISK: Target INR is 2.5-3.5 for patients with mechanical heart valves. Performing Organization Address City/State/[facility] Cent[facility]ode Phone Number [facility] [address], [place] [id number] [facility] * Hepatic function panel (07/06/2018 7:58 AM BATTERY SERVICE TECHNICIAN) Only the most recent of 4 results within the time period is included. Protein, Total 6.8 6.0 - 8.3 gm/dL [facility] Albumin 3.2 (L) 3.5 - 5.0 g/dL [facility] Total Bilirubin 1.3 (H) 0.2 - 1.2 mg/dL [facility] Bilirubin, Direct 0.6 (H) 0.1 - 0.5 mg/dL [facility] Alkaline Phosphatase 123 40 - 150 U/L [facility] AST 30 5 - 34 U/L [facility] ALT 18 6 - 55 U/L [facility] Specimen Blood Performing Organization Address City/State/Zipcode Phone Number [facility] [address], [place] [phone] [facility] * Basic Metabolic Panel (07/06/2018 7:58 AM BATTERY SERVICE TECHNICIAN) Only the most recent of 2 results within the time period is included. Sodium 140 136 - 145 meq/L [facility] Potassium 4.2 3.5 - 5.1 meq/L [facility] Chloride 109 (H) 98 - 107 meq/L [facility] CO2 26 22 - 29 meq/L [facility] BUN 14 7 - 21 mg/dL [facility] Creatinine 0.64 0.57 - 1.25 mg/dL [facility] Glucose 119 (H) 70 - 105 mg/dL [facility] Calcium 8.7 8.4 - 10.2 mg/dL [facility] EGFR 93Comment: ESTIMATED GFR IS mL/min/1.73 sq m NOT ACCURATE CREATININE [facility] CLEARANCE IN PREDICTING GLOMERULAR FILTRATION RATE. ESTIMATED GFR IS NOT APPLICABLE FOR DIALYSIS PATIENTS. Specimen Blood Performing Organization Address City/State/Zipcode Phone Number [facility] [address] [place] [address] [facility] * Gamma Glutamyl Transferase (GGT) (01/23/2018 3:00 PM CDT) GGT 20Comment: Specimen slightly 9 - 64 U/L hemolyzed [facility] Specimen Blood Performing Organization Address City/[facility] Centercode Phone Number [facility] [address] [place] [address] [facility] after 08/13/2017 Insurance Payer Benefit Subscriber ID Type Phone Address Plan / Group [employer] xxxxxxxxxx [id number]
[2018-08-14 15:49] VITALS: BP 103/63
== END | disposition home or self-care (01) ==
LOC: OR 10:17
PROVIDERS: ATTEND Internal Medicine Gastroenterology
DX: K74.3 Primary biliary cirrhosis (principal); I85.10 Secondary esophageal varices without bleeding; K21.9 Gastro-esophageal reflux disease without esophagitis; K31.89 Other diseases of stomach and duodenum; K76.6 Portal hypertension; I10 Essential (primary) hypertension; Z01.810 Encounter for preprocedural cardiovascular examination; Z01.812 Encounter for preprocedural laboratory examination; Z68.38 Body mass index [BMI] 38.0-38.9, adult; Z87.891 Personal history of nicotine dependence
CPT/HCPCS: 36415; 43235; 43255; 80053; 85025; 85610; 85730; 93005

== ENCOUNTER → 2020-11-17 | Day surgery (SDC) | payer MEDICARE ==
[2020-11-12 12:48] LABS: BASOPHILS % 0.4 % (0.0-1.0); EOSINOPHILS # (AUTO) 0.1 (0.0-0.4); EOSINOPHILS % 3.7 % (0.0-6.0); HEMATOCRIT 39.1 % (34.2-44.1); HEMOGLOBIN 13.2 g/dL (12.0-16.0); LYMPHOCYTES # (AUTO) 0.7 (1.0-3.2); LYMPHOCYTES % 27.2 % (18.0-39.1); MEAN CORPUSCULAR HEMOGLOBIN 30.8 pg (28-32); MEAN CORPUSCULAR HGB CONC 33.8 g/dL (31-35); MEAN CORPUSCULAR VOLUME 91.1 fL (81-99); MONOCYTES # (AUTO) 0.4 (0.2-0.8); NEUTROPHILS # (AUTO) 1.3 (2.1-6.9); NEUTROPHILS % 52.7 % (38.7-80.0); PLATELET COUNT 58 x10e3/uL (140-360); RED BLOOD COUNT 4.29 x10e6/uL (3.6-5.1); RED CELL DISTRIBUTION WIDTH 13.9 % (11.7-14.4)
[2020-11-12 13:04] LABS: INR 1.07; PROTHROMBIN TIME 14.6 seconds (11.9-14.5)
[2020-11-12 13:08] LABS: ALANINE AMINOTRANSFERASE 15 IU/L (0-55); ALBUMIN/GLOBULIN RATIO 0.7 (0.8-2.0); ALKALINE PHOSPHATASE 108 IU/L (40-150); ANION GAP 11.4 mmol/L (8-16); BLOOD UREA NITROGEN 10 mg/dL (7-26); BUN/CREATININE RATIO 16 (6-25); CALCIUM 8.5 mg/dL (8.4-10.2); CARBON DIOXIDE 27 mmol/L (22-29); CHLORIDE 107 mmol/L (98-107); CREATININE, SERUM 0.61 mg/dL (0.57-1.11); EST GLOMERULAR FILTRATION RATE > 60 ML/MIN (60-); GLUCOSE 118 mg/dL (74-118); POTASSIUM 4.4 mmol/L (3.5-5.1); SODIUM 141 mmol/L (136-145)
[~2020-11-17] MED LIST changes: +CALCIUM600 MG PO; +CETIRIZINE HCL10 MG PO; -FENTANYL CITRATE/PF 100MCG/2 ML INJ ONE; +FISH OIL 1,0001 EAC2 PO; +LIDOCAINE HCL 2% LOCAL INJ 5 ML SDV VIAL INJ ONE; +MULTI-VITAMIN1 EACH PO; +MULTIVITAMINS1 EAC7 PO; +PANTOPRAZOLE SO40 MG PO; +PROPOFOL IV EMULSION 10 MG/ML 20 ML VIAL ONE; -PROPOFOL IV EMULSION 10 MG/ML 50 ML VIAL ONE; +PROPRANOLOL HCL10 MG PO; +SIMETHICONE 40 MG/0.6 ML BTL ONE; +VIT D PO; +ZINC PO
[2020-11-17 13:25] VITALS: BP 110/61
== END | disposition home or self-care (01) ==
LOC: OR 10:08
PROVIDERS: ATTEND Internal Medicine Gastroenterology
DX: Z09 Encounter for follow-up examination after completed treatment for conditions other than malignant neoplasm (principal); K74.3 Primary biliary cirrhosis; I85.10 Secondary esophageal varices without bleeding; K31.89 Other diseases of stomach and duodenum; K44.9 Diaphragmatic hernia without obstruction or gangrene; I10 Essential (primary) hypertension; D70.8 Other neutropenia; M19.90 Unspecified osteoarthritis, unspecified site; J30.2 Other seasonal allergic rhinitis; I49.3 Ventricular premature depolarization; Z01.810 Encounter for preprocedural cardiovascular examination; Z01.812 Encounter for preprocedural laboratory examination; Z20.822 Contact with and (suspected) exposure to COVID-19
CPT/HCPCS: 36415 ×2; 43239; 43244; 80053; 82948; 85025; 85610; 85730; 88305; 88312; 93005; U0002; 43270; J2001

== ENCOUNTER → 2021-11-02 | Day surgery (SDC) | payer MEDICARE ==
[2021-11-01 10:07] LABS: BASOPHILS % 0.4 % (0.0-1.0); EOSINOPHILS # (AUTO) 0.1 (0.0-0.4); EOSINOPHILS % 3.9 % (0.0-6.0); HEMATOCRIT 39.3 % (34.2-44.1); HEMOGLOBIN 13.3 g/dL (12.0-16.0); LYMPHOCYTES # (AUTO) 0.5 (1.0-3.2); LYMPHOCYTES % 19.3 % (18.0-39.1); MEAN CORPUSCULAR HGB CONC 33.8 g/dL (31-35); MEAN CORPUSCULAR VOLUME 94.5 fL (81-99); MONOCYTES # (AUTO) 0.4 (0.2-0.8); MONOCYTES % 17.2 % (4.4-11.3); NEUTROPHILS # (AUTO) 1.4 (2.1-6.9); NEUTROPHILS % 58.8 % (38.7-80.0); PLATELET COUNT 63 x10e3/uL (140-360); RED BLOOD COUNT 4.16 x10e6/uL (3.6-5.1); RED CELL DISTRIBUTION WIDTH 14.2 % (11.7-14.4)
[2021-11-01 10:23] LABS: ALBUMIN 2.9 g/dL (3.5-5.0); ALBUMIN/GLOBULIN RATIO 0.8 (0.8-2.0); ANION GAP 11.5 mmol/L (8-16); CREATININE, SERUM 0.63 mg/dL (0.57-1.11); POTASSIUM 4.5 mmol/L (3.5-5.1)
[2021-11-01 10:32] LABS: INR 1.05; PROTHROMBIN TIME 14.6 seconds (11.9-14.5)
[2021-11-01 10:33] LABS: PARTIAL THROMBOPLASTIN TIME 29.7 seconds (23.8-35.5)
[~2021-11-02] MED LIST changes: +FENTANYL CITRATE/PF 100MCG/2 ML INJ ONE; +MIDAZOLAM HCL 2 MG/2 ML VIAL ONE; -SIMETHICONE 40 MG/0.6 ML BTL ONE
[2021-11-02 10:06] VITALS: BP 106/58
== END | disposition home or self-care (01) ==
LOC: OR 06:40
PROVIDERS: ATTEND Internal Medicine Gastroenterology
DX: Z09 Encounter for follow-up examination after completed treatment for conditions other than malignant neoplasm (principal); D13.1 Benign neoplasm of stomach; K29.50 Unspecified chronic gastritis without bleeding; K74.3 Primary biliary cirrhosis; I85.10 Secondary esophageal varices without bleeding; K26.9 Duodenal ulcer, unspecified as acute or chronic, without hemorrhage or perforation; K60.2 Anal fissure, unspecified; K59.00 Constipation, unspecified; K64.4 Residual hemorrhoidal skin tags; K64.8 Other hemorrhoids; I10 Essential (primary) hypertension; Z01.810 Encounter for preprocedural cardiovascular examination; Z01.812 Encounter for preprocedural laboratory examination; Z20.822 Contact with and (suspected) exposure to COVID-19; Z79.899 Other long term (current) drug therapy; Z68.39 Body mass index [BMI] 39.0-39.9, adult
CPT/HCPCS: 36415; 43239; 80053; 85025; 85610; 85730; 88305; 88312; 93005; J2001; J2250; J2704; J3010; U0002; 88304

== ENCOUNTER → 2022-01-04 | Day surgery (SDC) | payer MEDICARE ==
[2022-01-03 09:51] LABS: EOSINOPHILS # (AUTO) 0.1 (0.0-0.4); EOSINOPHILS % 4.4 % (0.0-6.0); HEMATOCRIT 38.2 % (34.2-44.1); HEMOGLOBIN 12.7 g/dL (12.0-16.0); LYMPHOCYTES # (AUTO) 0.6 (1.0-3.2); LYMPHOCYTES % 27.1 % (18.0-39.1); MEAN CORPUSCULAR HEMOGLOBIN 31.5 pg (28-32); MEAN CORPUSCULAR HGB CONC 33.2 g/dL (31-35); MEAN CORPUSCULAR VOLUME 94.8 fL (81-99); MONOCYTES # (AUTO) 0.4 (0.2-0.8); MONOCYTES % 18.7 % (4.4-11.3); NEUTROPHILS % 48.8 % (38.7-80.0); PLATELET COUNT 60 x10e3/uL (140-360); RED BLOOD COUNT 4.03 x10e6/uL (3.6-5.1); RED CELL DISTRIBUTION WIDTH 14.2 % (11.7-14.4)
[~2022-01-04] MED LIST changes: +POVIDONE IODINE 0.05% 0.05 % ML PO ONE
[2022-01-04 11:40] VITALS: BP 106/64
== END | disposition home or self-care (01) ==
LOC: OR 08:41
PROVIDERS: ATTEND Internal Medicine Gastroenterology
DX: K31.7 Polyp of stomach and duodenum (principal); K29.50 Unspecified chronic gastritis without bleeding; K74.3 Primary biliary cirrhosis; I85.10 Secondary esophageal varices without bleeding; K76.6 Portal hypertension; K60.2 Anal fissure, unspecified; K26.9 Duodenal ulcer, unspecified as acute or chronic, without hemorrhage or perforation; K59.00 Constipation, unspecified; K64.4 Residual hemorrhoidal skin tags; K64.8 Other hemorrhoids; I10 Essential (primary) hypertension; Z01.812 Encounter for preprocedural laboratory examination; Z20.822 Contact with and (suspected) exposure to COVID-19; Z79.899 Other long term (current) drug therapy; Z68.39 Body mass index [BMI] 39.0-39.9, adult
CPT/HCPCS: 36415; 43239; 85025; 87106; 87205; 88305; 88312; J2001; J2704; U0002; 43235; J2250; J3010

== ENCOUNTER → 2022-10-13 | Outpatient (CLI) | payer MEDICARE ==
[~2022-10-13] MED LIST changes: +DIATRIZOATE MEGL/DIATRIZOA SOD 30 ML BTL PO ONE; -FENTANYL CITRATE/PF 100MCG/2 ML INJ ONE; +IOPAMIDOL 370 MG/ML 100 ML INFUS..BTL INJ ONE; -LIDOCAINE HCL 2% LOCAL INJ 5 ML SDV VIAL INJ ONE; -MIDAZOLAM HCL 2 MG/2 ML VIAL ONE; -POVIDONE IODINE 0.05% 0.05 % ML PO ONE; -PROPOFOL IV EMULSION 10 MG/ML 20 ML VIAL ONE; +PROTONIX20 MG PO; +VITAMIN D3125 MCG/1 PO
[2022-10-13 14:27] LABS: CREATININE, SERUM 0.6 mg/dL (0.57-1.11)
== END ==
LOC: CT 13:27
PROVIDERS: ATTEND Obstetrics & Gynecology
DX: R19.00 Intra-abdominal and pelvic swelling, mass and lump, unspecified site (principal)
CPT/HCPCS: 36415; 74177; 82565; 84520; Q9963; Q9967

== ENCOUNTER → 2023-01-28 | Day surgery (SDC) | payer MEDICARE ==
[2023-01-25 14:48] LABS: BASOPHILS % 0.9 % (0.0-1.0); EOSINOPHILS # (AUTO) 0.1 (0.0-0.4); EOSINOPHILS % 3.9 % (0.0-6.0); HEMATOCRIT 39.4 % (34.2-44.1); HEMOGLOBIN 13.2 g/dL (12.0-16.0); LYMPHOCYTES # (AUTO) 0.6 (1.0-3.2); LYMPHOCYTES % 23.9 % (18.0-39.1); MEAN CORPUSCULAR HEMOGLOBIN 31.1 pg (28-32); MEAN CORPUSCULAR HGB CONC 33.5 g/dL (31-35); MEAN CORPUSCULAR VOLUME 92.7 fL (81-99); MONOCYTES # (AUTO) 0.4 (0.2-0.8); MONOCYTES % 18.7 % (4.4-11.3); NEUTROPHILS # (AUTO) 1.2 (2.1-6.9); NEUTROPHILS % 52.6 % (38.7-80.0); RED BLOOD COUNT 4.25 x10e6/uL (3.6-5.1); RED CELL DISTRIBUTION WIDTH 14.6 % (11.7-14.4)
[2023-01-25 14:50] LABS: PLATELET COUNT 54 x10e3/uL (140-360)
[~2023-01-28] MED LIST changes: -DIATRIZOATE MEGL/DIATRIZOA SOD 30 ML BTL PO ONE; -IOPAMIDOL 370 MG/ML 100 ML INFUS..BTL INJ ONE; +LACTATED RINGER'S 1,000 ML ONE; +LIDOCAINE HCL 2% LOCAL INJ 5 ML SDV VIAL INJ ONE; +PROPOFOL IV EMULSION 10 MG/ML 20 ML VIAL ONE
[2023-01-28 08:30] VITALS: BP 106/44; PULSE 66; RESP 14; O2SAT 98
== END | disposition home or self-care (01) ==
LOC: OR 06:43
PROVIDERS: ATTEND Internal Medicine Gastroenterology
DX: K74.3 Primary biliary cirrhosis (principal); I85.10 Secondary esophageal varices without bleeding; K31.7 Polyp of stomach and duodenum; K29.50 Unspecified chronic gastritis without bleeding; K21.9 Gastro-esophageal reflux disease without esophagitis; K59.00 Constipation, unspecified; K64.8 Other hemorrhoids; K76.6 Portal hypertension; I10 Essential (primary) hypertension; M06.9 Rheumatoid arthritis, unspecified; Z01.812 Encounter for preprocedural laboratory examination; Z79.899 Other long term (current) drug therapy
CPT/HCPCS: 36415; 43239; 43244; 43251; 85025; 88305; 88342; J2001; J2704; J7121; 88304; 88312